=== PATIENT | female | born 1985 | race Caucasian/White ===

== ENCOUNTER → 2017-01-31 | Outpatient (CLI) | payer OTHER ==
[2017-01-31 15:43] LABS: HEMATOCRIT 37.5 % (34.6-47.8); HEMOGLOBIN 12.9 g/dL (11.7-16.4); WHITE BLOOD COUNT 10.6 x10^3/uL (3.4-10)
[2017-01-31 16:14] LABS: HIV 1&2 ANTIBODY SCREEN Nonreactive (Nonreactive); HIV-1 p24 ANTIGEN Nonreactive (Nonreactive)
== END ==
LOC: LAB 14:51
PROVIDERS: ATTEND Obstetrics & Gynecology
DX: Z34.82 Encounter for supervision of other normal pregnancy, second trimester (principal); Z36.82 Encounter for antenatal screening for nuchal translucency
CPT/HCPCS: 36415; 82105; 85025; 86592; 86703; 86762; 86787; 86850; 86900; 87086; 87340; 87899; G0435

== ENCOUNTER 2020-11-10 13:59 | Outpatient (CLI) | payer OTHER ==
[~2020-11-10] VITALS: Ht 175.3 cm; Wt 85.9 kg
[~2020-11-10 13:59] MED LIST: IBUP-1223 PO; OXYC1TAB12 PO; PREN1TAB69 PO
[2020-11-10] MEDS ORDERED: ACETAMINOPHEN 500 MG TABLET ONE (14:11)
[2020-11-10 14:27] LABS: AMPHETAMINE SCREEN, URINE Negative (Negative); BARBITURATE SCREEN, URINE Negative (Negative); BENZODIAZEPINE SCREEN, URINE Negative (Negative); CANNABINOID SCREEN, URINE Negative (Negative); COCAINE SCREEN, URINE Negative (Negative); METHADONE SCREEN, URINE Negative (Negative); OPIATE SCREEN, URINE Negative (Negative)
[2020-11-10 15:23] LABS: BASOPHILS % (AUTO) 0 % (0-1); EOSINOPHILS % (AUTO) 1 % (1-7); LYMPHOCYTES % (AUTO) 28 % (22-44); MEAN CORPUSCULAR HGB CONC 33.7 g/dL (32.4-35.8); MEAN PLATELET VOLUME 7.8 fL (7.4-10.4); MONOCYTES % (AUTO) 8 % (2-9); NEUTROPHILS % (AUTO) 64 % (42-75); PLATELET COUNT 251 x10^3/uL (130-400); RED CELL DISTRIBUTION WIDTH 13.6 % (9.6-15.2)
== END 2020-11-10 16:25 | disposition home or self-care (01) ==
LOC: LDOP 13:59
PROVIDERS: ATTEND Obstetrics & Gynecology
DX: O36.8130 Decreased fetal movements, third trimester, not applicable or unspecified (principal); Z3A.33 33 weeks gestation of pregnancy
CPT/HCPCS: 36415; 59025; 76805; 80307; 85025; 86592; 86762; 86850; 86900; 87340; 87806; G0475

== ENCOUNTER 2020-11-10 16:49 | Emergency (ER) | payer OTHER, MEDICAID ==
[~2020-11-10] VITALS: Ht 175.3 cm; Wt 86.7 kg
--- NOTE | 2020-11-10 17:45 | NUR ---
repairer shoe sticks completed.
--- NOTE | 2020-11-10 18:00 | NUR ---
PA at bedside for exam.
[2020-11-10] MEDS ORDERED: ACETAMINOPHEN 325 MG TABLET ONE (18:21)
[2020-11-10] MEDS ORDERED: ACETAMINOPHEN 325 MG TABLET PO ONE (18:30)
[2020-11-10 18:31] VITALS: BP 103/63
== END 2020-11-10 18:33 | disposition home or self-care (01) ==
LOC: ED 16:50
DX: O26.893 Other specified pregnancy related conditions, third trimester (principal); K08.89 Other specified disorders of teeth and supporting structures; Z3A.33 33 weeks gestation of pregnancy
CPT/HCPCS: 99283